=== PATIENT | female | born 1960 | race Hispanic/Latino ===

== ENCOUNTER 2024-10-13 07:55 | Emergency (ER) | payer BC, OTHER ==
[~2024-10-13] VITALS: Ht 162.6 cm; Wt 57.6 kg
--- NOTE | 2024-10-13 08:18 | EKG ---
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
[2024-10-13 08:23] LABS: IMMATURE GRANULOCYTE ABSOLUTE 0.02 K/uL (0-1); NUCLEATED RED BLOOD CELLS 0.0 % (0.0-0.19); PLATELET COUNT (AUTO) 176 K/uL (130-400); RED BLOOD CELL COUNT(AUTO) 3.93 MIL/uL (4.00-5.50); RED CELL DISTRIBUTION WIDTH 12.2 % (11.0-15.5); WHITE BLOOD COUNT (AUTO) 5.3 K/uL (4.8-10.8)
[2024-10-13 08:40] LABS: CREATINE KINASE, TOTAL 173.0 U/L (21-232); CREATININE 0.8 mg/dL (0.5-1.0); GLOMERULAR FILTR. RATE CALC 82.0 mL/min (>90); GLUCOSE,RANDOM 120.0 mg/dL (70-105); SODIUM SERUM 142.0 mmol/L (136-145); UREA NITROGEN, BLOOD 21.0 mg/dL (7-18)
--- NOTE | 2024-10-13 08:40 | ERN ---
General Chief Complaint: Upper Extremity Pain/Injury Stated Complaint: BILATERAL ARM PAIN Time Seen by MD: 07:55 Source: patient History of Present Illness Initial Comments Patient is a 64-year-old female coming in with multiple complaints. Patient complains of shoulder discomfort left arm discomfort and lower extremity discomfort as well. No fever no chills no cough. Allergies: Coded Allergies: No Known Drug Allergies (Unverified Allergy, Unknown, 04/24/16) Past Medical History Past Medical History: Depression, High Cholesterol Past Surgical History: Cholecystectomy ROS Dictation CONSTITUTIONAL: No chills, no fever, no weakness, no diaphoresis, no malaise. HEAD/FACE: No signs of trauma. EENT: No eye pain, no blurred vision, no tearing, no double vision, no ear pain, no ear discharge, no nose pain, no nasal congestion, no throat pain, no throat swelling, no mouth pain. RESPIRATORY: No cough, no orthopnea, no SOB, no stridor, no wheezing. CARDIOVASCULAR: No chest pain, no edema, no palpitations, no syncope. GASTROINTESTINAL/ABDOMINAL: No abdominal pain, no constipation, no diarrhea, no nausea, no vomiting. GENITOURINARY: No abnormal discharge, no dysuria, no frequent urination, no hematuria. No complaints of pain in the genitals. MUSCULOSKELETAL: No back pain, no gout, no joint pain, no joint swelling, muscle pain, muscle stiffness, no neck pain. INTEGUMENTARY: No change in color, no change in hair/nails, no dryness, no lesion, no lumps, no rash. NEUROLOGICAL/PSYCH: No anxiety, not depressed, no emotional problem, no headache, no numbness, no pre-existing deficit, no history of seizures, no tremors, no weakness. HEMATOLOGIC/LYMPHATIC: Not anemic, no history of blood clots, no apparent bleeding, no bruising, glands not swollen. All Systems Negative, Except as Noted. Physical Exam Physical Exam Dictation VITAL SIGNS: Reviewed. GENERAL APPEARANCE: Alert, oriented x3, no acute distress, obese. HEAD AND FACE: Non-traumatic. EYES: PERRL, pink conjunctivas, eyelid no trauma, anterior chamber clear. EARS: Pinnas intact and no signs of trauma or erythema. Ear canals clear and no discharge. TMs no erythema. NOSE: No discharge, no bleeding. OROPHARYNX: Mouth normal, teeth no caries, tongue pink. Pharynx clear, no erythema. Tonsils no exudates, no abscesses noted. Mucous membrane moist. NECK: Supple, non-tender, no thyromegaly, no masses, no JVD, no bruits. BREAST: Deferred. CHEST: No tenderness, no crepitus, no paradoxical movement, no retractions. LUNGS: Clear, well-ventilated, symmetric, no rales, no wheezing, no rhonchi, no stridor, good breath sounds bilaterally. HEART: Regular rate, regular rhythm, no murmur, no gallops. VASCULAR: No peripheral edema. ABDOMEN: Soft, positive bowel sounds, nondistended, no guarding, nontender, no rebound, no masses no hepatomegaly, no splenomegaly, no Strickland's sign, no hernias. RECTAL: Deferred. GENITAL: Deferred. NEUROLOGICAL: Normal speech, gross motor function intact, gross sensory function intact. MUSCULOSKELETAL: Neck nontender, full range of motion, back nontender, full range of motion. EXTREMITIES: Nontender, full range of motion. SKIN: Color pink, dry, no turgor, no rash, no lacerations, no abrasions, no contusions. LYMPHATICS: Deferred. Results Laboratory and Microbiology Lab and Micro Result Laboratory Tests Test 10/13/24 08:17 White Blood Count 5.3 K/uL (4.8-10.8) Red Blood Count 3.93 MIL/uL (4.00-5.50) L Hemoglobin 12.2 g/dL (12.0-16.0) Hematocrit 36.2 % (36-48) Mean Corpuscular Volume 92.1 fL (79-99) Mean Corpuscular Hemoglobin 31.0 pg (27.0-33.0) Mean Corpuscular Hemoglobin Concent 33.7 g/dL (32.0-36.0) Red Cell Distribution Width 12.2 % (11.0-15.5) Platelet Count 176 K/uL (130-400) Mean Platelet Volume 11.4 fL (7.5-10.5) H Immature Granulocyte % (Auto) 0.4 % (0-1) Neutrophils (%) (Auto) 58.5 % (40.0-77.0) Lymphocytes (%) (Auto) 28.3 % (21.0-51.0) Monocytes (%) (Auto) 10.1 % (3.0-13.0) Eosinophils (%) (Auto) 2.3 % (0.0-8.0) Basophils (%) (Auto) 0.4 % (0.0-5.0) Neutrophils # (Auto) 3.1 K/uL (1.8-7.7) Lymphocytes # (Auto) 1.5 K/uL (1.0-4.8) Monocytes # (Auto) 0.5 K/uL (0.1-1.0) Eosinophils # (Auto) 0.12 K/uL (0.00-0.70) Basophils # (Auto) 0.02 K/uL (0.00-0.20) Absolute Immature Granulocyte (auto 0.02 K/uL (0-1) Nucleated Red Blood Cells 0.0 % (0.0-0.19) Sodium Level 142 mmol/L (136-145) Potassium Level 3.8 mmol/L (3.5-5.1) Chloride Level 105 mmol/L (101-111) Carbon Dioxide Level 32 mmol/L (21-32) Blood Urea Nitrogen 21 mg/dL (7-18) H Creatinine 0.8 mg/dL (0.5-1.0) Glomerular Filtration Rate Calc 82 mL/min (>90) Random Glucose 120 mg/dL (70-105) H Total Calcium 8.8 mg/dL (8.5-10.1) Magnesium Level 2.10 mg/dL (1.80-2.40) Total Creatine Kinase 173 U/L (21-232) Troponin I High Sensitivity 8 ng/L (4-50) Labs Reviewed?: Yes EKG/XRAY/US/CT/MRI EKG Comment 10/13/2024 time 8:07 a.m. Ventricular rate 74 Sinus rhythm MS [address] wave elevation or depression X-RAY Comment IMAGING REPORT Signed PATIENT: SALLIE US MR#: [id number] : 1960 SEX: F AGE: 64 LOCATION: [facility] ORDER 08 STATUS: REG ER REPORT#: [id number] SERVICE [id number] REASON: arm pain ORDERING PHYSICIAN: ALAINA SRIVASTAVA MD PROCEDURE: CXR1VW - CHEST 1VW EXAM: CR Chest, 2 View. CLINICAL HISTORY: Arm pain. COMPARISON: None provided. FINDINGS: LUNGS: Prominent bronchovascular markings in bilateral lung spencer. Lungs are otherwise clear. PLEURAL SPACES: No evidence of pleural effusion or pneumothorax. MEDIASTINUM: The cardiomediastinal silhouette is within normal limits. Fairly well defined retrocardiac opacity present in the left paramedian location. BONES: No aggressive appearing osseous lesion seen. IMPRESSION: Prominent bronchovascular markings in bilateral lung spencer- Suggested clinical correlation. No focal airspace disease. Fairly well defined retrocardiac opacity in the left paramedian location- Suggested CT thorax for further characterisation, if clinically indicated. /[place] DICTATED BY: SHEA AMBRIZ Jr., MD DATE: 10/13/24 100 ELECTRONICALLY SIGNED BY: SHEA AMBRIZ Jr., MD DATE: 10/13/[address] [place] [address] IMAGING REPORT Signed PATIENT: SALLIE US MR#: [id number] : 1960 SEX: F AGE: 64 LOCATION: [facility] ORDER 4 STATUS: [facility] REPORT#: [id number] SERVICE [id number] REASON: abnormal chest xray ORDERING PHYSICIAN: ALAINA SRIVASTAVA MD PROCEDURE: CHEST WO - CT CHEST W/O CONTRAST EXAM: CT Chest without IV contrast CLINICAL HISTORY: Abnormal chest radiograph. TECHNIQUE: Thin-section axial CT through the thorax without intravenous contrast. Coronal, sagittal, and MIP reformation were generated on the same workstation. CT scan done according to ALARA (As Low as Reasonably Achievable). CONTRAST USED: None. COMPARISON: None provided. FINDINGS: No acute infiltrate or pulmonary mass. Mild subpleural scarring in the bilateral lung spencer. No pulmonary nodules. No pleural effusions. No pericardial effusion. The heart size is within normal limits. Coronary vessels and intrathoracic aorta are grossly normal. Small diaphragmatic hernia in the left posterior aspect with intrathoracic herniation of the abdominal fat. The wall defect measures 1.6 x 0.7 cm. No axillary, supraclavicular, or mediastinal lymphadenopathy. No focal thyroid abnormality. Limited views of the upper abdomen demonstrate postcholecystectomy status. No acute or suspicious osseous abnormality. IMPRESSION: Small diaphragmatic hernia in the left posterior aspect with intrathoracic herniation of the abdominal fat. No acute infiltrate or pulmonary mass. Mild subpleural scarring in the bilateral lung spencer. /[place] DICTATED BY: SHEA AMBRIZ Jr., MD DATE: 10/13/24 1236 ELECTRONICALLY SIGNED BY: SHEA AMBRIZ Jr., MD DATE: 10/13/24 1236 MDM MDM: Differential diagnosis: Muscle aches, anxiety, abnormal chest x-ray Rationale: Tests considered and ordered secondary to shared decision making include: Previous outside records reviewed: Old ER visits. Risk of complication and/or morbidity or mortality of patient management: None Medications-Per medication reconciliation Need for hospitalization: Patient does not meet criteria for hospitalization. Patient is a 64-year-old female coming in to be evaluated for body aches. Laboratory workup negative for acute findings. On chest x-ray there was an abnormality found and per radiologist a CT of the chest needed to be performed to rule out an acute pathology. CT disclose a diaphragmatic hernia otherwise unremarkable. I did advised patient of the findings and appropriate follow up with the PCP. ED Course Orders Procedure Category Date Status Time Cbc With Differential LAB 10/13/24 Complete 08:02 Chest 1vw RAD 10/13/24 Resulted 08:02 12 Lead Ekg Tracing- EKG 10/13/24 Complete Technical 08:02 Magnesium LAB 10/13/24 Complete 08:02 Creatine Kinase, Total LAB 10/13/24 Complete 08:02 Troponin I High LAB 10/13/24 Complete Sensitivity 08:02 Urinalysis Profile LAB 10/13/24 Logged 08:02 Basic Metabolic Panel LAB 10/13/24 Complete 08:02 Ct Chest W/O Contrast CT 10/13/24 Resulted 09:54 Vital Signs Date Time Temp Pulse Resp B/P (MAP) Pulse Ox O2 Delivery O2 Flow Rate FiO2 10/13/24 09:31 97.5 72 12 125/64 99 Room Air* 0 21 10/13/24 07:55 97.3 76 18 120/66 99 Room Air 0 DX & DISP Disposition: Discharge Departure Impression: Primary Impression: Dehydration Additional Impression: Diaphragmatic hernia Condition: Stable Additional Instructions: FOLLOW-UP WITH PRIMARY CARE PROVIDER IN 1 TO 2 DAYS. TAKE MEDICATIONS DIRECTED HERE IN THE EMERGENCY ROOM. OKAY TO CONTINUE HOME MEDICATIONS UNLESS OTHERWISE DISCUSSED DURING YOUR VISIT IN THE EMERGENCY ROOM TODAY. RETURN TO YOUR NEAREST EMERGENCY ROOM IF SYMPTOMS WORSEN OR IF THERE IS NO IMPROVEMENT. CALL 911 IF YOU NEED IMMEDIATE ASSISTANCE. TAKE TYLENOL [id number] NEEDED AND IF NO CONTRAINDICATIONS ARE PRESENT. INCREASE ORAL HYDRATION. A WOUND CULTURE OR URINE CULTURE WAS ORDERED HERE IN THE EMERGENCY ROOM DEPARTMENT PLEASE FOLLOW-UP WITH PRIMARY CARE PROVIDER AND ADVISE THEM TO GET REPORTS FROM OUR FACILITY. IF YOU HAD ANY AVIS WRAP/SPLINTS THAT WERE APPLIED HERE, PLEASE DO NOT REMOVE THEM UNTIL YOU SEE YOUR PRIMARY CARE OR SPECIALTY. Referrals: Referrals: TRUNG MENDOZA MD (PCP) Time of Disposition: 11:54 ALAINA SRIVASTAVA MD Oct 13, 2024 08:40
--- NOTE | 2024-10-13 09:10 | HMCIMG ---
EXAM: CR Chest, 2 View. CLINICAL HISTORY: Arm pain. COMPARISON: None provided. FINDINGS: LUNGS: Prominent bronchovascular markings in bilateral lung spencer. Lungs are otherwise clear. PLEURAL SPACES: No evidence of pleural effusion or pneumothorax. MEDIASTINUM: The cardiomediastinal silhouette is within normal limits. Fairly well defined retrocardiac opacity present in the left paramedian location. BONES: No aggressive appearing osseous lesion seen. IMPRESSION: Prominent bronchovascular markings in bilateral lung spencer- Suggested clinical correlation. No focal airspace disease. Fairly well defined retrocardiac opacity in the left paramedian location- Suggested CT thorax for further characterisation, if clinically indicated. /[place]
--- NOTE | 2024-10-13 11:37 | HMCIMG ---
EXAM: CT Chest without IV contrast CLINICAL HISTORY: Abnormal chest radiograph. TECHNIQUE: Thin-section axial CT through the thorax without intravenous contrast. Coronal, sagittal, and MIP reformation were generated on the same workstation. CT scan done according to ALARA (As Low as Reasonably Achievable). CONTRAST USED: None. COMPARISON: None provided. FINDINGS: No acute infiltrate or pulmonary mass. Mild subpleural scarring in the bilateral lung spencer. No pulmonary nodules. No pleural effusions. No pericardial effusion. The heart size is within normal limits. Coronary vessels and intrathoracic aorta are grossly normal. Small diaphragmatic hernia in the left posterior aspect with intrathoracic herniation of the abdominal fat. The wall defect measures 1.6 x 0.7 cm. No axillary, supraclavicular, or mediastinal lymphadenopathy. No focal thyroid abnormality. Limited views of the upper abdomen demonstrate postcholecystectomy status. No acute or suspicious osseous abnormality. IMPRESSION: Small diaphragmatic hernia in the left posterior aspect with intrathoracic herniation of the abdominal fat. No acute infiltrate or pulmonary mass. Mild subpleural scarring in the bilateral lung spencer. /[place]
[2024-10-13 12:29] VITALS: BP 118/63; PULSE 70; RESP 12; TEMP 97.5; O2SAT 100
--- NOTE | 2024-10-13 12:30 | NUR ---
PT READY FOR DISCHARGE AFTER IV FLUIDS
[2024-10-13] MEDS: 0.9%NACL 1000ML 1,000 ML IV SCH (12:39)
== END 2024-10-13 12:50 | disposition home or self-care (01) ==
LOC: EDH 07:55
DX: E86.0 Dehydration (principal); K44.9 Diaphragmatic hernia without obstruction or gangrene; E78.00 Pure hypercholesterolemia, unspecified; Z90.49 Acquired absence of other specified parts of digestive tract
CPT/HCPCS: 36415; 71045; 71250; 80048; 82550; 83735; 84484; 85025; 93005; 99284; 99285